=== PATIENT | male | born 1955 | race Caucasian/White ===

== ENCOUNTER 2017-04-27 05:33 | Observation (INO) | payer OTHER ==
[2017-04-27] MEDS ORDERED: GABAPENTIN 300 MG CAP PO ONE (06:00)
[2017-04-27] MEDS ORDERED: ceFAZolin 2 GM/SWFI 2 GM/20 ML SYR IVP ONE (06:00)
[2017-04-27] MEDS ORDERED: ACETAMINOPHEN 500 MG TAB PO ONE (06:00)
[2017-04-27] MEDS ORDERED: LR 1,000 ML IV ONE (06:05)
[2017-04-27] MEDS ORDERED: LIDOCAINE 1% 2 ML INJ ID PRN (06:05)
[2017-04-27] MEDS ORDERED: CHLORHEXIDINE GLUC HIBICLENS 118 ML BTL TP ONE (06:50)
[2017-04-27] MEDS ORDERED: THROMBIN (BOVINE) 20,000 UNIT VIAL TP ONE (06:50)
[2017-04-27] MEDS ORDERED: BACITRACIN 50,000 UNITS/10 ML SYR IRR ONE (06:51)
[2017-04-27] MEDS ORDERED: SURGIFLO MATRIX KIT WITH THROMBIN 8ml TP ONE (06:51)
--- NOTE | 2017-04-27 07:05 | PDHPUP ---
History & Physical Update H&P update statement: This history and physical update is based on an assessment of the patient which was completed after admission or registration (within 24 hours), but prior to the surgery/procedure. H&P update: H&P reviewed & patient examined, no change in patient's condition since H&P completed (All questions answered and consent signed. Site marked.)
[2017-04-27] MEDS ORDERED: MIDAZOLAM 2 MG/2 ML VIAL IVP ONE (07:07)
--- NOTE | 2017-04-27 07:09 | PDANEPAE ---
ANE History of Present Illness cervical stenosis ANE Past Medical History - Cardiovascular History Hx Hypertension: No Hx Arrhythmias: No Hx Chest Pain: No Hx Coronary Artery / Peripheral Vascular Disease: No Hx CHF / Valvular Disease: No Hx Palpitations: No - Pulmonary History Hx COPD: No Hx Asthma/Reactive Airway Disease: No Hx Recent Upper Respiratory Infection: No Hx Oxygen in Use at Home: No Hx Sleep Apnea: No Sleep Apnea Screening Result - Last Documented: Negative - Neurologic History Hx Cerebrovascular Accident: No Hx Seizures: No Hx Dementia: No - Endocrine History Hx Diabetes: No - Renal History Hx Renal Disorders: No - Liver History Hx Hepatic Disorders: No - Neurological & Psychiatric Hx Hx Neurological and Psychiatric Disorders: No - Cancer History Hx Cancer: No - Congenital Disorder History Hx Congenital Disorders: No - GI History Hx Gastrointestinal Disorders: Yes Gastrointestinal History Comment: ARMANDO IN PAST. PREVENTATIVE ANTACID - Other Health History Other Health History: NEG - Chronic Pain History Chronic Pain: Yes (NECK PAIN W/NUMBNESS HANDS & ARMS) - Surgical History Prior Surgeries: ARMANDO FUNDOPLICATION. HERNIA ANE Review of Systems Review of Systems: - Exercise capacity METS (RN): 5 METS ANE Patient History - Allergies Allergies/Adverse Reactions: amoxicillin Allergy (Verified 04/09/17 13:33) Rash - Home Medications Home Medications: Aspirin [Aspirin 81mg (*)] 81 mg PO DAILY 04/09/17 [Last Taken 04/20/17] Cyclobenzaprine [Flexeril 10 MG (*)] 10 mg PO TID PRN 04/09/17 [Last Taken 04/25] Multivitamins [Multivitamin (*)] 1 each PO DAILY 04/09/17 [Last Taken 04/20/17] Hagan-3 Fatty Acids [Fish Oil 1000 mg (*)] 1,000 mg PO DAILY 04/09/17 [Last Taken 04/20/17] Pregabalin [Lyrica 75mg (*)] 75 mg PO BID 04/09/17 [Last Taken 04/26/17 19:30] oxyCODONE IR [Oxycodone Ir (*)] 5 - 10 mg PO Q8HRS PRN 04/09/17 [Last Taken 03/01 19:30] traZODone 150MG (*) 04/27/17 [Last Taken 04/26/17 22:00] - NPO status NPO Since - Liquids (Date): 04/26/17 NPO Since - Liquids (Time): 22:00 NPO Since - Solids (Date): 04/26/17 NPO Since - Solids (Time): 21:00 - Smoking Hx Smoking Status: Former smoker - Family Anes Hx Family Hx Anesthesia Complications: NEG ANE Labs/Vital Signs - Vital Signs Blood Pressure: 113/74 Heart Rate: 67 Respiratory Rate: 16 O2 Sat (%): 94 Height: 167.64 cm Weight: 74.843 kg ANE Physical Exam - Airway Neck exam: FROM Mallampati Score: Class 2 Mouth exam: normal dental/mouth exam - Pulmonary Pulmonary: no respiratory distress - Cardiovascular Cardiovascular: regular rate and rhythym - ASA Status ASA Status: II ANE Anesthesia Plan Anesthesia Plan: general endotracheal anesthesia
[2017-04-27] MEDS ORDERED: HYDROmorphONE/DILAUDID 2 MG/ML INJ ONE (07:12)
[2017-04-27] MEDS ORDERED: fentaNYL 100 MCG/2 ML INJ ONE ×4 (07:12→10:20)
[2017-04-27] MEDS ORDERED: PROPOFOL 200 MG/20 ML VIAL ONE (07:13)
[2017-04-27] MEDS ORDERED: MIDAZOLAM 2 MG/2 ML VIAL ONE (07:13)
[2017-04-27] MEDS ORDERED: ONDANSETRON 4 MG/2 ML VIAL IVP PRN ×2 (07:53→08:57)
[2017-04-27] MEDS ORDERED: NALOXONE HCL 0.4 MG/ML INJ IVP PRN (07:53)
[2017-04-27] MEDS ORDERED: PROMETHAZINE HCL 25 MG/ML INJ IVP PRN (07:53)
[2017-04-27] MEDS ORDERED: LIDOCAINE 2% 5 ML SDV ONE (08:38)
[2017-04-27] MEDS ORDERED: ONDANSETRON 4 MG/2 ML VIAL ONE (08:38)
[2017-04-27] MEDS ORDERED: PHENYLEPHRINE HCL 100 MCG/ML SYR ONE (08:38)
[2017-04-27] MEDS ORDERED: DEXAMETHASONE 4 MG/ML VIAL ONE (08:38)
[2017-04-27] MEDS ORDERED: CYCLOBENZAPRINE 10 MG TAB PO PRN (08:52)
--- NOTE | 2017-04-27 08:54 | POSTANESTH ---
Post Anesthetic Evaluation Cardiovascular Status: Normal, Stable Respiratory Status: Normal, Stable Level of Consciousness/Mental Status: Can Participate in Eval Pain Control: Adequate, Prn Tx Ordered Nausea/Vomiting Control: Adequate, Prn Tx Ordered Complications Possibly Related to Anesthesia: None Noted
[2017-04-27] MEDS ORDERED: DIAZEPAM 10 MG/2 ML SYR IVP ONE (08:56)
[2017-04-27] MEDS ORDERED: BISACODYL 10 MG SUPP PR PRN (08:57)
[2017-04-27] MEDS ORDERED: diphenhydrAMINE 25 MG CAP PO PRN (08:57)
[2017-04-27] MEDS ORDERED: ONDANSETRON DISINTEGRATING 4 MG TAB PO PRN (08:57)
[2017-04-27] MEDS ORDERED: LACTULOSE 20 GM/30 ML UDCUP PO PRN (08:57)
[2017-04-27] MEDS ORDERED: MAGNESIUM HYDROXIDE 30 ML UDCUP PO PRN (08:57)
[2017-04-27] MEDS ORDERED: HYDROmorphONE/DILAUDID 1 MG/ML INJ IVP PRN (08:57)
[2017-04-27] MEDS ORDERED: POLYETHYLENE GLYCOL 3350 17 GM PKT PO PRN (08:57)
[2017-04-27] MEDS ORDERED: NS W/ 20 KCl/L 1,000 ML IV SCH (09:00)
--- NOTE | 2017-04-27 09:06 | POSTOPPROG ---
Post Op Note Date of Operation: 04/27/17 Surgeon: Cesar Perez Cuff Presser: Joaquin Chu PA-C Anesthesiologist: Mckenzie Anesthesia: GET(General Endotracheal) Pre-op Diagnosis: cervical stenosis, arm weakness Post-op Diagnosis: same Indication: cord compression, weakness Procedure: C56 ACDF Findings: Please see dictation Inf/Abcess present in the surg proc area at time of surgery?: No Depth: Organ Space EBL: Minimal Complications: none Drains: Peyman Lewis Specimen(s): none PA Addendum - Addendum .: S: Pt in PACU, denies any numbness or tingling O: AAOx3 NAD VSS MAEx4 Motor 5/5 BUE/BLE w/exception of R wrist extension 4/5 and interossei 4/5 Incision cdi +LT A: 61 yo M s/p C56 ACDF 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
[2017-04-27] MEDS ORDERED: HYDROmorphONE/DILAUDID 1 MG/ML INJ ONE (09:09)
[2017-04-27] MEDS: fentaNYL 100 MCG/2 ML INJ IVP PRN ×3 (09:11→10:21)
[2017-04-27] MEDS: HYDROmorphONE/DILAUDID 1 MG/ML INJ IVP PRN ×4 (09:11→10:21)
[2017-04-27] MEDS ORDERED: DIAZEPAM 10 MG/2 ML SYR ONE (09:22)
[2017-04-27] MEDS: PREGABALIN 75 MG CAP PO SCH ×2 (11:34→21:25)
[2017-04-27] MEDS: oxyCODONE IR 5 MG TAB PO PRN ×3 (11:34→23:10)
[2017-04-27] MEDS: SENNOSIDES/DOCUSATE SODIUM TAB PO SCH ×2 (11:35→21:26)
[2017-04-27] MEDS: FAMOTIDINE 20 MG TAB PO SCH ×2 (11:35→21:25)
--- NOTE | 2017-04-27 13:13 | GOP ---
[f rep st] OPERATIVE REPORT DATE OF OPERATION: SURGEON: Cesar Perez MD TECHNOLOGY EDUCATION INSTRUCTOR: Lisa Chu, PAC. ANESTHESIA: General. PREOPERATIVE DIAGNOSIS: 1. C5-C6 cervical stenosis with radiculopathy and weakness. 2. Treatment refractory to nonoperative intervention. POSTOPERATIVE DIAGNOSIS: 1. C5-C6 cervical stenosis with radiculopathy and weakness. 2. Treatment refractory to nonoperative intervention. PROCEDURE PERFORMED: 1. Anterior arthrodesis with approach to C5-C6. 2. C5-C6 diskectomy with bilateral foraminotomies, osteophytectomies, and interbody fusion using an 8 x 14 x 11 mm titanium coated PEEK cage with morselized autograft and allograft. 3. Anterior cervical fusion C5-C6 with a 19 mm Medtronic Zevo plate. 4. Use of intraoperative fluoroscopy, less than 1 hour physician time. 5. Use of neuromonitoring. 6. Use of operative microscope. FINDINGS: SPECIMENS: None. ESTIMATED BLOOD LOSS: 15 mL. INDICATIONS: The patient is a gentleman who unfortunately suffers from neck pain with right upper ex tremity radiculopathy and weakness. Imaging demonstrated severe spinal stenosis C5-C6. After failin g nonoperative interventions, after discussion of risks, benefits, and treatment alternatives, we dec ided to proceed forth with surgery as described above. DESCRIPTION OF PROCEDURE: Patient brought to operating theater, underwent general endotracheal anest hesia without complications. Venodyne, SARAH hose, and appropriate lines placed by Anesthesia. His he ad was maintained supine on the operating table in slight extension. Using lateral fluoroscopy and a spinal needle, we then picked our entry point at the C5-C6 level. This was marked as a transverse i ncision on the right side of the neck. This area was then prepped and draped in the usual sterile paredes rgical fashion. A time-out was completed per protocol and the patient received antibiotics within 1 hour of incision. The incision was taken with the scalpel blade and then using the monopolar taken down through subcuta neous tissues to the level of platysma. The platysma was over-mined in the cranial and caudal direct ions and a Weitlaner placed to maintain our exposure. We opened the fibers of the platysma cranially and caudally. Using blunt and sharp dissection, we then traveled in a plane medial to the carotid s delmar and lateral to esophagus and trachea to reach the prevertebral fascia. We placed a bayonetted needle in the disk space of C5-C6 and confirmed our level using lateral fluoroscopy. We elevated the longus colli muscle from the anterior vertebral bodies of C5 and C6 and deep retractors placed to ma intain our exposure. The microscope was brought into the field to assist with microscopic dissection and maintain illumination and magnification. We placed a [place] pin into the vertebral body of C5 a nd C6 and placed C5-C6 in mild distraction. At this point, we completed a C5-C6 diskectomy with bila teral foraminotomies and osteophytectomies. We prepared the cartilaginous endplates and measured the interbody space. We then placed an 8 x 14 x 11 mm titanium coated PEEK cage with morselized autogra ft and allograft into the C5-C6 disk space. We removed the Nor[place] pins and drilled down the anterior osteophytes. We then secured a 19 mm Medtronic Zevo plate onto the vertebral bodies of C5 and C6. AP and lateral x-rays demonstrated good placement of the hardware. We irrigated the wound copiously with bacitracin irrigation and left the drain in the subfascial space. The wound was then closed in multiple layers using Vicryl sutures in deep layers and Dermabond for the skin. The patient's wounds were dressed sterilely. He was then awakened, extubated, and taken to the recovery room in stable c ondition. There were no complications and no noted changes on neuromonitoring throughout the procedu re. COMPLICATIONS: None. /[id number]/MODL
[2017-04-27 13:50] VITALS: RESP 16
[2017-04-27] MEDS: ACETAMINOPHEN 500 MG TAB PO SCH ×2 (15:33→21:27)
[2017-04-27] MEDS: ceFAZolin 2 GM/DEXTROSE 100 ML IV SCH ×2 (15:34→23:10)
[2017-04-28] MEDS: oxyCODONE IR 5 MG TAB PO PRN ×2 (03:47→09:05)
[2017-04-28] MEDS: ACETAMINOPHEN 500 MG TAB PO SCH (07:10)
[2017-04-28 07:43] VITALS: BP 137/86; PULSE 83; TEMP 97.7; O2SAT 95
--- NOTE | 2017-04-28 08:51 | SOAPPROG ---
SOAP Progress Note Assessment/Plan: Assessment: 61 yo M POD #1 C5/6 ACDF Plan: neuro: stable and doing well overall :) PT/OT likely dc RAISA this afternoon x-rays today dc home this afternoon discussed with Dr Perez please call with neuro changes 04/28/17 08:50 Subjective: some soreness in neck, no arm pain, continued right hand paresthesias. Objective: Vital Signs Temp Pulse Resp BP Pulse Ox 36.5 C 83 16 137/86 H 95 04/28/17 07:43 04/28/17 07:43 04/28/17 07:43 04/28/17 07:43 04/28/17 07:43 04/27/17 04/28/17 04/29/17 05:59 05:59 05:59 Intake Total 2850 Output Total 1640 Balance 1210 AAOx4, +FC PERRL, EOMI, no facial droop 5/5 + light touch C/D/I ICD10 Worksheet Patient Problems: Problems Problem Status Onset Fusion of spine of cervical region Acute - ICD10 Problem Qualifiers (1) Fusion of spine of cervical region
[2017-04-28] MEDS: SENNOSIDES/DOCUSATE SODIUM TAB PO SCH (09:04)
[2017-04-28] MEDS: FAMOTIDINE 20 MG TAB PO SCH (09:05)
[2017-04-28] MEDS: PREGABALIN 75 MG CAP PO SCH (09:05)
--- NOTE | 2017-04-28 12:47 | ASMTCMCOM ---
CM Note CM Note Notes: Pt medically stable for d/c, no CM d/c needs identified. Date Signed: 04/28/2017 12:46 PM Electronically Signed By:MARY CARMEN Robbins
[2017-04-30] MEDS ORDERED: ENOXAPARIN 40 MG/0.4 ML SYR SC SCH (09:00)
== END 2017-04-28 12:50 | disposition home or self-care (01) ==
LOC: F3N 05:33
PROVIDERS: ADMIT Neurological Surgery; ATTEND Neurological Surgery
DX: M47.22 Other spondylosis with radiculopathy, cervical region (principal); M47.816 Spondylosis without myelopathy or radiculopathy, lumbar region; I25.10 Atherosclerotic heart disease of native coronary artery without angina pectoris; R73.01 Impaired fasting glucose; F51.01 Primary insomnia; Z87.891 Personal history of nicotine dependence
CPT/HCPCS: 22551; 72040; 76001; 92610; 97165; 97535; G0378; C1713; J0690; J1100; J1170; J2250; J2370; J2405; J2704; J3010; J3360

== ENCOUNTER → 2017-08-24 | Outpatient (CLI) | payer OTHER | LOC: FIMAGING 10:38 | PROVIDERS: ATTEND Physician Assistant Surgical | DX: M47.12 Other spondylosis with myelopathy, cervical region (principal); M54.2 Cervicalgia; R53.1 Weakness; Z98.1 Arthrodesis status ==

== ENCOUNTER → 2017-11-22 | Outpatient (CLI) | payer OTHER | LOC: FIMAGING 11:32 | PROVIDERS: ATTEND Physician Assistant Surgical | DX: T84.038A Mechanical loosening of other internal prosthetic joint, initial encounter (principal); M43.12 Spondylolisthesis, cervical region ==

== ENCOUNTER → 2018-04-22 | Outpatient (CLI) | payer OTHER | LOC: FIMAGING 13:47 | PROVIDERS: ATTEND Physician Assistant Surgical | DX: M54.2 Cervicalgia (principal); Z98.1 Arthrodesis status ==